=== PATIENT | male | born 1980 | race American Indian/Alaskan Native ===

== ENCOUNTER 2021-10-27 08:23 | Emergency (ER) | payer SELFPAY ==
[2021-10-27] MEDS ORDERED: LIDOCAINE-MPF (1%) 10 MG/1 ML VIAL 5 ML INFILTRATI NR (14:55)
[2021-10-27] MEDS ORDERED: AMOXICILLIN 500 MG CAP PO NR (14:58)
[2021-10-27] MEDS ORDERED: DOXYCYCLINE 100 MG CAP PO NR (14:59)
--- NOTE | 2021-10-27 15:06 | Emergency Department Report ---
ED General Adult HPI - General Chief complaint: Skin/Abscess/Foreign Body Stated complaint: ABSCESS ON BACK/LFT LEG PN Time Seen by Provider: 10/27/21 14:07 Source: patient Mode of arrival: Ambulatory Limitations: No Limitations - History of Present Illness Initial comments: 41-year-old male with past medical history hypertension reports to the ER with complaints of pilonidal abscess that is draining and scrotal abscess with drainage. Patient reports repeated abscesses in these areas as he reports having surgery as needed. About 5 years ago due to equipment wearing harness. No other acute symptoms reported at this time. - Related Data Previous Rx's Medication Instructions Recorded Last Taken Type Acetaminophen/Codeine [Tylenol 1 tab PO Q6H PRN 2 Days #8 tab 10/27/21 Unknown Rx /Codeine # 3 tab] Amoxicillin [Trimox CAP] 500 mg PO Q8H 7 Days #21 capsule 10/27/21 Unknown Rx Doxycycline Hyclate 100 mg PO BID 7 Days #14 cap 10/27/21 Unknown Rx Allergies Allergy/AdvReac Type Severity Reaction Status Date / Time No Known Allergies Allergy Verified 10/27/21 15:53 ED Review of Systems ROS: Stated complaint: ABSCESS ON BACK/LFT LEG PN Other details as noted in HPI Comment: All other systems reviewed and negative Skin: other (Abscess to upper buttocks and left scrotum.) ED Past Medical Hx - Past Medical History Previous Medical History?: Yes Hx Hypertension: Yes - Social History Smoking Status: Current Every Day Smoker - Medications Home Medications: Home Medications Medication Instructions Recorded Confirmed Last Taken Type Acetaminophen/Codeine [Tylenol 1 tab PO Q6H PRN 2 Days #8 tab 10/27/21 Unknown Rx /Codeine # 3 tab] Amoxicillin [Trimox CAP] 500 mg PO Q8H 7 Days #21 capsule 10/27/21 Unknown Rx Doxycycline Hyclate 100 mg PO BID 7 Days #14 cap 10/27/21 Unknown Rx ED Physical Exam - General Limitations: No Limitations General appearance: alert, in no apparent distress - Head Head exam: Present: atraumatic, normocephalic - Eye Eye exam: Present: normal appearance - ENT ENT exam: Present: mucous membranes moist - Neck Neck exam: Present: normal inspection - Respiratory Respiratory exam: Present: normal lung sounds bilaterally. Absent: respiratory distress - Cardiovascular Cardiovascular Exam: Present: regular rate, normal rhythm. Absent: systolic murmur, diastolic murmur, rubs, gallop - GI/Abdominal GI/Abdominal exam: Present: soft, normal bowel sounds, other (Abscess to pilonidal area with drainage present.) - Rectal Rectal exam: Present: deferred - exam: Present: other (Abscess to left scrotum that is draining.) - Extremities Exam Extremities exam: Present: normal inspection - Back Exam Back exam: Present: normal inspection - Neurological Exam Neurological exam: Present: alert, oriented X3 - Psychiatric Psychiatric exam: Present: normal affect, normal mood - Skin Skin exam: Present: warm, dry, intact, normal color. Absent: rash ED Course Vital Signs 10/27/21 10/27/21 08:33 16:33 Temperature 98.9 F Pulse Rate 102 H Respiratory 14 18 Rate Blood Pressure 153/98 Blood Pressure 148/88 [Right] O2 Sat by Pulse 98 99 Oximetry ED Medical Decision Making - Medical Decision Making 41-year-old male past medical hypertension. He reports to the ER with pilonidal abscess and left scrotal abscess both that are draining. Patient reports that these abscesses are recurrent. Patient reports he was last on Bactrim for about 5 days which is a few months ago. Patient denies having primary care services. On physical exam pilonidal abscess and left scrotal abscess are both draining. No signs of streaking noted. Patient in no acute distress. No need for I&D as abscesses are both draining. Patient to be started on oral antibiotics, and given referral to primary care provider. Patient reports a history of hypertension but currently has not been on m edication for about 1 year. Current blood pressure is 153/98. Patient is asymptomatic with his elevated blood pressure. Patient informed to follow-up with with primary care services that he is going be referred to for blood pressure management as well as management of his abscesses if they continue to be recurrent. Patient agrees with plan of care and verbalized understanding. Patient to be discharged with oral antibiotics and pain medication for discomfort. Vital Signs 10/27/21 08:33 Temperature 98.9 F Pulse Rate 102 H Respiratory 14 Rate Blood Pressure 153/98 O2 Sat by Pulse 98 Oximetry Vital Signs 10/27/21 10/27/21 08:33 16:33 Temperature 98.9 F Pulse Rate 102 H Respiratory 14 18 Rate Blood Pressure 153/98 Blood Pressure 148/88 [Right] O2 Sat by Pulse 98 99 Oximetry Critical care attestation.: If time is entered above; I have spent that time in minutes in the direct care of this critically ill patient, excluding procedure time. ED Disposition Clinical Impression: Pilonidal abscess, Scrotal abscess Disposition: 01 HOME / SELF CARE / HOMELESS Is pt being admited?: No Condition: Stable Instructions: Skin Abscess, Pilonidal Cyst, Testicular Self-Exam Prescriptions: Doxycycline Hyclate 100 mg PO BID 7 Days #14 cap Amoxicillin [Trimox CAP] 500 mg PO Q8H 7 Days #21 capsule Acetaminophen/Codeine [Tylenol /Codeine # 3 tab] 1 tab PO Q6H PRN 2 Days #8 tab PRN Reason: Pain , Severe (7-10) Referrals: ENEDINA ROMANO MD [Primary Care Provider] - 3-5 Days [facility] [Outside] - 3-5 Days [facility] [Outside] - 3-5 Days [facility] [Outside] - 3-5 Days Forms: Work/School Release Form(ED) Time of Disposition: 15:18
[2021-10-27 16:33] VITALS: BP 148/88
== END 2021-10-27 16:33 | disposition home or self-care (01) ==
LOC: ED 08:23
DX: L05.01 Pilonidal cyst with abscess (principal); N49.2 Inflammatory disorders of scrotum; F17.200 Nicotine dependence, unspecified, uncomplicated; I10 Essential (primary) hypertension
CPT/HCPCS: 99282